=== PATIENT | female | born 1995 | race African-American/Black ===

== ENCOUNTER 2019-01-02 23:37 | Emergency (ER) | payer BC ==
[~2019-01-02] VITALS: Ht 182.9 cm; Wt 79.4 kg
[2019-01-03 00:44] VITALS: BP 118/71
--- NOTE | 2019-01-03 16:13 | EKG ---
[place] [address] [facility] [place] [address] ELECTROCARDIOGRAM REPORT Name: HELADIO VO Room #: CHEYANNE Zapien#: [id number] ������������������ Admission: 01/02/19 ������������������ Attend Phys: Discharge: 01/03/19 ������������������ Date of : [birth year] Report #: [id number] ����������������������������������������������������������������� [id number] THIS REPORT FOR: //name// [facility] ED Test Date: 2019-01-03 Test Time: 00:00:18 Pat Name: HELADIO VO Department: Room: Gender: F [employer]: KMD : 1995 Requested By: David Berumen Order Number: [id number] MD: Nadir Hawthorne Measurements Intervals Paia Rate: 80 P: -12 SC: 123 QRS: 55 QRSD: 86 T: 6 QT: 386 QTc: 446 Interpretive Statements Sinus rhythm No previous ECG available for comparison Electronically Signed On 01-03-2019 16:13:00 CDT by Nadir Hawthorne [email or web address] ��������������������������������������������� <ELECTRONICALLY SIGNED> ���������������������������������������� By: Nadir Hawthorne MD ��������������������������������������������� 01/03/19 1613 0000 0000 Nadir Hawthorne MD /EPI
== END 2019-01-03 00:45 | disposition home or self-care (01) ==
LOC: ER 23:37
DX: R07.89 Other chest pain (principal)